=== PATIENT | female | born 1990 | race African-American/Black ===

== ENCOUNTER 2020-02-27 16:40 | Inpatient (IN) | payer OTHER ==
[2020-02-27 18:10] VITALS: BMI 39.4
[2020-02-27 19:16] LABS: BASO % 0.4 % (0-2.0); EOS % 1.1 % (0-4.5); HEMATOCRIT 37.5 % (32.4-45.2); HEMOGLOBIN 12.8 GM/dL (10.7-15.3); LYMPH % 16.2 % (8-40); MCH 29.7 pg (25.7-33.7); MCHC 34.2 g/dl (32.0-36.0); MEAN PLT VOLUME 9.4 fl (7.5-11.1); MONO % 7.1 % (3.8-10.2); NEUT % 75.2 % (42.8-82.8); PLATELET COUNT 201 K/MM3 (134-434); RBC 4.31 M/mm3 (3.60-5.2); RDW 13.8 % (11.6-15.6)
[2020-02-27 19:45] LABS: INR 0.96 (0.83-1.09); PROTHROMBIN TIME (PATIENT) 11.6 SEC (9.7-13.0)
[2020-02-27 19:49] LABS: POTASSIUM 4.1 mmol/L (3.5-5.1)
[2020-02-27 19:50] LABS: CALCIUM 9.5 mg/dL (8.5-10.1)
[2020-02-27 19:51] LABS: BLOOD UREA NITROGEN 7.5 mg/dL (7-18)
[2020-02-27 19:54] LABS: CREATININE 0.6 mg/dL (0.55-1.3)
--- NOTE | 2020-02-27 19:55 | HP ---
Past Medical History - Primary Care Physician PCP:: Cooper Ch - Admission Chief Complaint: Scheduled for induction of labor History of Present Illness: 30 yo , ZULEMA 02/18/20, EGA 40 weeks for induction of labor No bleeding or leaking fluid per vagina. History Source: Patient Limitations to Obtaining History: No Limitations - Past Medical History ...: 3 ...Para: 0 ...Term: 0 ...: 0 ...Spon : 1 ...Induced : 1 ...Living Children: 0 ...LMP: 05/23/19 ... Weeks Gestation by Dates: 40.0 ...EDC by Dates: 02/27/20 - Past Surgical History Hx Myomectomy: No Hx Transabdominal Cerclage: No - Smoking History Smoking history: Never smoked Have you smoked in the past 12 months: No - Alcohol/Substance Use Hx Alcohol Use: No History of Substance Use: reports: None - Social History Do you think of yourself as: Straight/Heterosexual History of Recent Travel: No Home Medications - Allergies Allergies/Adverse Reactions: Allergies Allergy/AdvReac Type Severity Reaction Status Date / Time No Known Allergies Allergy Verified 02/27/20 18:41 - Home Medications Home Medications: Ambulatory Orders Caplet 1 tab PO DAILY 01/28/20 Family Medical History Family Hx Diabetes: Grandmother (maternal), Mother Review of Systems - Review of Systems Constitutional: reports: No Symptoms Eyes: reports: No Symptoms HENT: reports: No Symptoms Neck: reports: No Symptoms Cardiovascular: reports: No Symptoms Respiratory: reports: No Symptoms Gastrointestinal: reports: No Symptoms Genitourinary: reports: No Symptoms Breasts: reports: No Symptoms Reported Musculoskeletal: reports: No Symptoms Integumentary: reports: No Symptoms Neurological: reports: No Symptoms Endocrine: reports: No Symptoms Hematology/Lymphatic: reports: No Symptoms Psychiatric: reports: No Symptoms Physical Exam - Maternity Vital Signs: Vital Signs Temperature 98.4 F 02/27/20 19:00 Pulse Rate 89 02/27/20 19:00 Respiratory Rate 18 02/27/20 19:00 Blood Pressure 122/78 02/27/20 19:00 O2 Sat by Pulse Oximetry (%) 100 02/27/20 19:00 Constitutional: Yes: Well Nourished Eyes: Yes: WNL HENT: Yes: WNL Neck: Yes: WNL Cardiovascular: Yes: WNL - Abdominal Exam/OB Fundal Height: 40 Number of Fetuses: Single Presentation: Vertex Contractions: No Monitor Mode: External Heart Rate (range): 140 Heart Rate Location: [facility] Category: I Accelerations: Uniform Decelerations: None - Vaginal Exam/OB Vaginal Bleeding: No Speculum Exam: No Dilatation (cm): 0 Effacement (%): 0 Amniotic Membrane Status: Intact Presentation: Vertex/Position Station: -3 - Physical Exam Musculoskeletal: Yes: WNL Extremities: Yes: WNL Edema: No Integumentary: Yes: WNL ...Motor Strength: WNL Psychiatric: Yes: WNL - Labs Lab Results: CBC, BMP 02/27/20 18:30 02/27/20 17:43 Problem List - Problems (1) 40 weeks gestation of Code(s): Z3A.40 - 40 WEEKS GESTATION OF Assessment/Plan Full term gestation for induction of labor Admit L and D for management.
--- NOTE | 2020-02-27 20:21 | PN ---
Progress Note (short form) - Note Progress Note: Patient comfortably in bed. VSS, afebrille EFM - Baseline 140/min, moderate variability, accelerations, no decelerations Tocos - irritability. Pelvic - closed/long/posterior Plan - Full term gestation in labor Cervidil # 1 placed Anticipate vaginal delivery Problem List - Problems (1) 40 weeks gestation of Code(s): Z3A.40 - 40 WEEKS GESTATION OF
[2020-02-27] MEDS ORDERED: ELECTROLYTE-148 SOLN 1,000 ML IV SCH (23:45)
[2020-02-27] MEDS ORDERED: PROMETHAZINE HCL 25 MG/1 ML VIAL ONE (23:49)
[2020-02-27] MEDS ORDERED: BUTORPHANOL TARTRATE 2 MG/ML VIAL ONE (23:49)
[2020-02-27] MEDS ORDERED: PROMETHAZINE HCL 25 MG/1 ML VIAL IVPB ONE (23:54)
[2020-02-27] MEDS ORDERED: BUTORPHANOL TARTRATE 1 MG/ML VIAL IVPB ONE (23:54)
[2020-02-27] MEDS ORDERED: DINOPROSTONE 10 MG VAGINAL SUPPOSITORY VG ONE (23:55)
[2020-02-27] MEDS ORDERED: ELECTROLYTE-148 SOLN 500 ML IV ONE (23:56)
[2020-02-28] MEDS ORDERED: FENTANYL/BUPIVACAINE/NS/PF - PCEA - 50 ML DISP.SYRIN EP ONE (01:50)
[2020-02-28] MEDS ORDERED: PCA PUMP NR ONE (01:50)
[2020-02-28] MEDS ORDERED: BUPIVACAINE HCL/PF 0.25% (2.5MG/ML) 10 ML VIAL ONE (01:58)
[2020-02-28] MEDS ORDERED: NALOXONE HCL 0.4 MG/ML VIAL IVPUSH PRN (02:25)
[2020-02-28] MEDS ORDERED: FENTANYL/BUPIVACAINE/NS/PF - PCEA - 50 ML DISP.SYRIN EP SCH (02:30)
[2020-02-28] MEDS ORDERED: LIDOCAINE HCL 1% PRESERVATIVE FREE - 30ML VIAL ONE (03:01)
[2020-02-28] MEDS ORDERED: OXYTOCIN 20 UNITS in 0.9% NS 20 UNIT/1,000 ML INFUS.BAG IV ONE (03:01)
--- NOTE | 2020-02-28 04:30 | PN ---
Progress Note (short form) - Note Progress Note: Patient comfortable after epidural analgesia VSS, afebrile EFM - Baseline 140/min, moderate variability, accelerations, no decelerations Tocos - q 4 Pelvic - 5cm/100%/-1 Plan -full term gestation in labor Anticipate vaginal delivery Problem List - Problems (1) 40 weeks gestation of Code(s): Z3A.40 - 40 WEEKS GESTATION OF
[2020-02-28] MEDS ORDERED: BENZOCAINE 28 GM HEMORRHOIDAL OINTMENT TP PRN (04:35)
[2020-02-28] MEDS ORDERED: WITCH HAZEL 50% (TUCKS) 40 PAD/JAR PAD TP PRN (04:35)
[2020-02-28] MEDS ORDERED: METHYLERGONOVINE MALEATE 0.2 MG/1 ML AMP IM PRN (04:35)
[2020-02-28] MEDS ORDERED: BENZOCAINE 20% 57 GM BOTTLE TP PRN (04:35)
--- NOTE | 2020-02-28 04:35 | PN ---
Delivery - Delivery Vaginal Delivery: Spontaneous Type of Anesthesia: Local, Epidural Episiotomy/Laceration: Right Mediolateral, Perineal Extension/lac, 2nd degree EBL (cc): 300 Delivery, Single - Stages of Labor Date 1st Stage Initiatied: 02/27/20 Date 2nd Stage Initiated: 02/28/20 Date of Delivery: 02/28/20 Date Placenta Delivered: 02/28/20 Placenta: Yes: Spontaneous, Normal Configuration - Condition of Infant Gender: Female Weight: 2.835 kg Position: Left, OA - 1 Minute Total Score: 8 5 Minutes Total Score: 9 - Feeding Plan Initial Plan: Exclusive throughout hospitalization
[2020-02-28] MEDS ORDERED: OXYTOCIN 20 UNITS in 0.9% NS 20 UNIT/1,000 ML INFUS.BAG IV SCH (04:45)
[2020-02-28 05:52] LABS: CORD BASE EXCESS -6.4 mmol/L (0-2); CORD HCO3 22.1 mmHg (20-29); CORD PCO2 54.4 mmHg (30-78); CORD pH 7.226 (7.14-7.44)
[2020-02-28 05:58] LABS: CORD BASE EXCESS -8.4 mmol/L (0-2); CORD HCO3 21.1 mmHg (20-29); CORD PCO2 59.4 mmHg (30-78); CORD pH 7.168 (7.14-7.44)
[2020-02-28] MEDS: ACETAMINOPHEN 325 MG TABLET (FP) PO PRN ×2 (09:11→21:08)
[2020-02-28] MEDS: PRENATAL VITAMINS W/ FOLIC ACID TABLET (FP) PO SCH (09:11)
[2020-02-28] MEDS: IBUPROFEN 600 MG TABLET (FP) PO PRN ×2 (09:15→21:07)
[2020-02-28] MEDS: DOCUSATE SODIUM 100 MG CAPSULE (FP) PO SCH (09:15)
[2020-02-29 08:32] LABS: BASO % 0.4 % (0-2.0); EOS % 0.8 % (0-4.5); HEMATOCRIT 31.8 % (32.4-45.2); HEMOGLOBIN 10.6 GM/dL (10.7-15.3); LYMPH % 16.3 % (8-40); MCH 29.6 pg (25.7-33.7); MCHC 33.4 g/dl (32.0-36.0); MEAN CELL VOLUME 88.5 fl (80-96); MEAN PLT VOLUME 9.3 fl (7.5-11.1); MONO % 6.7 % (3.8-10.2); NEUT % 75.8 % (42.8-82.8); PLATELET COUNT 162 K/MM3 (134-434); RDW 13.9 % (11.6-15.6); WHITE BLOOD COUNT 14.4 K/mm3 (4.0-10.0)
[2020-02-29] MEDS: PRENATAL VITAMINS W/ FOLIC ACID TABLET (FP) PO SCH (10:08)
[2020-02-29] MEDS: IBUPROFEN 600 MG TABLET (FP) PO PRN (10:08)
[2020-02-29] MEDS: DOCUSATE SODIUM 100 MG CAPSULE (FP) PO SCH (10:08)
[2020-02-29] MEDS: ACETAMINOPHEN 325 MG TABLET (FP) PO PRN (10:08)
--- NOTE | 2020-02-29 10:29 | PN ---
Progress Note (short form) - Note Progress Note: Patient without complaints tolerating diet Having BM minimal lochial flow VS wnl Heart and lungs wnl Abdomen soft, uterus well contracted, normal lochial flow, perneum healing A/P- POD#1 s/p vaginal delivery ambulate colace pain management
--- NOTE | 2020-02-29 10:37 | DS ---
Physical Exam-GAMEPLAY ENGINEER Vital Signs: Vital Signs Temperature 97.7 F 02/29/20 09:28 Pulse Rate 95 H 02/29/20 09:28 Respiratory Rate 18 02/29/20 09:28 Blood Pressure 131/72 02/29/20 09:28 O2 Sat by Pulse Oximetry (%) 97 02/29/20 09:28 Constitutional: Yes: Well Nourished Cardiovascular: Yes: WNL Respiratory: Yes: WNL Gastrointestinal: Yes: WNL ....Post : Yes: Uterus firm Breast(s): Yes: WNL Musculoskeletal: Yes: WNL Extremities: Yes: WNL Edema: No Labs: CBC, BMP 02/29/20 07:27 02/27/20 17:43 Delivery - Delivery Vaginal Delivery: Spontaneous Type of Anesthesia: Epidural Episiotomy/Laceration: Right Mediolateral, Perineal Extension/lac, 2nd degree EBL (cc): 300 Delivery, Single - Stages of Labor Date 1st Stage Initiatied: 02/27/20 Time 1st Stage Initiated: 20:30 Date 2nd Stage Initiated: 02/28/20 Time 2nd Stage Initiated: 03:12 Date of Delivery: 02/28/20 Time of Delivery: 03:28 Time Placenta Delivered: 03:38 Placenta: Yes: Spontaneous, Normal Configuration - Condition of Infant Lead Generation Specialist/Powder Nipper Present: No Infant Gender: Female Weight: 2.835 kg Position: Left, OA Total Hours ROM (Hrs/Mins): 0/16 - 1 Minute Total Score: 8 5 Minutes Total Score: 9 - Feeding Plan Initial Plan: Exclusive throughout hospitalization Remarks - Remarks Remarks: s/p vaginal delivery asymptomatic uterus well contracted, minimal lochial flow perineum healing discharge home tomorrow Discharge Summary Problems reviewed: Yes Reason For Visit: LABOR ADMIT Current Active Problems 40 weeks gestation of (Acute) Procedures: Principal: Hospital Course: s/p vaginal delivery. course benign Plan of Treatment: Discharge home tomorrow Home on- ibuprofen 600mg 1 tab po q6hrs prn pain colace 100mg 1 tab po daily prn constipation continue vitamins [facility] for episiotomy check Condition: Stable - Instructions Diet, Activity, Other Instructions: Regular Discharge home tomorrow Home on- ibuprofen 600mg 1 tab po q6hrs prn pain colace 100mg 1 tab po daily prn constipation continue vitamins follow up at [facility] on 03/02/20 for episiotomy check Disposition: HOME - Home Medications Comprehensive Discharge Medication List: Ambulatory Orders Caplet 1 tab PO DAILY 01/28/20 Prescription Drug Monitoring Program (I-STOP) results: I-STOP not reviewed
[2020-02-29] MEDS ORDERED: SENNOSIDES/DOCUSATE COMBO (SENNA PLUS) TABLET (UD) PO PRN (22:00)
[2020-03-01] MEDS: ACETAMINOPHEN 325 MG TABLET (FP) PO PRN ×2 (01:45→08:59)
[2020-03-01] MEDS: IBUPROFEN 600 MG TABLET (FP) PO PRN ×2 (01:46→09:02)
[2020-03-01 08:57] VITALS: BP 120/85; PULSE 99; TEMP 98.6
[2020-03-01] MEDS: PRENATAL VITAMINS W/ FOLIC ACID TABLET (FP) PO SCH (09:03)
[2020-03-01] MEDS: DOCUSATE SODIUM 100 MG CAPSULE (FP) PO SCH (09:03)
== END 2020-03-01 14:30 | disposition home or self-care (01) | DRG 560 ==
LOC: JLDR 16:40 → J3W 02-28 05:35
PROVIDERS: ADMIT Obstetrics & Gynecology; ATTEND Obstetrics & Gynecology
PROC: 3E0P7VZ Introduction of Hormone into Female Reproductive, Via Natural or Artificial Opening (ICD-10-PCS; 2020-02-27)
PROC: 10E0XZZ Delivery of Products of Conception, External Approach (ICD-10-PCS; principal; 2020-02-28)
PROC: 0W8NXZZ Division of Female Perineum, External Approach (ICD-10-PCS; 2020-02-28)
DX: O70.1 Second degree perineal laceration during delivery (principal); Z3A.40 40 weeks gestation of pregnancy; Z37.0 Single live birth
CPT/HCPCS: 36415; 36600; 59409; 80048; 82803; 85025; 85610; 85730; 86780; 86850; 86900; 86901; 87389; C9803; U0003